=== PATIENT | female | born 1980 | race Caucasian/White ===

== ENCOUNTER 2016-06-05 15:33 | Emergency (ER) | payer BC, OTHER ==
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
[~2016-06-05 15:33] MED LIST: AMITRYPTYLINE PO; ANEXSIA 7.5/3251 TA1 PO; ASACOL400 MG PO; AUGMENTIN PO; B-121000 MC1 PO; BUPAP PO; CENTRUM PO; CIPRO250 MG PO; DICYCLOMINE HCL20 MG PO; IBUPROFEN PO; KEPPRA1000 MG PO; KEPPRA750 M1 PO; KEPPRA750 MG PO; LIALDA PO; OS-CAL 500 + D500 MG PO; PERCOCET 5/321 UDTAB PO; PERCOCET 7.5-31 EACH PO; PHENERGAN PO; PHENERGAN12.5 MG PO; PRISTIQ PO; PYRIDIUM PO; SUMATRIPTAN SUC50 M1 PO; TRAZODONE HCL100 MG PO; ULTRAM PO; VICODIN 5/500 T1 TAB PO
== END 2016-06-05 16:06 | disposition home or self-care (01) ==
LOC: CFTX 15:33
DX: S16.1XXA Strain of muscle, fascia and tendon at neck level, initial encounter (principal); S80.01XA Contusion of right knee, initial encounter; F17.210 Nicotine dependence, cigarettes, uncomplicated; Z87.442 Personal history of urinary calculi; V89.2XXA Person injured in unspecified motor-vehicle accident, traffic, initial encounter; Y92.410 Unspecified street and highway as the place of occurrence of the external cause
CPT/HCPCS: 72125; 73560; 99284